=== PATIENT | female | born 1980 | race Caucasian/White ===

== ENCOUNTER 2019-03-31 11:09 | Emergency (ER) | payer OTHER ==
[~2019-03-31] VITALS: Ht 152.4 cm; Wt 54.9 kg
[2019-03-31 11:21] VITALS: Ht 152.4 cm; Wt 54.9 kg
[2019-03-31 12:08] VITALS: BP 108/71
== END 2019-03-31 12:08 | disposition home or self-care (01) ==
LOC: ED 11:09
DX: S46.911A Strain of unspecified muscle, fascia and tendon at shoulder and upper arm level, right arm, initial encounter (principal); X58.XXXA Exposure to other specified factors, initial encounter; Y93.89 Activity, other specified; Y92.89 Other specified places as the place of occurrence of the external cause; Y99.8 Other external cause status